=== PATIENT | female | born 1945 | race Caucasian/White ===

== ENCOUNTER → 2017-07-29 | Outpatient (CLI) | payer MEDICARE, OTHER ==
[~2017-07-29] MED LIST: CALPRATL TP; ESTR1; ESTR2 PO; FLUO20; GABA400; NAPR220; OXCA300; PRED20 PO; PREG50; Prozac20 MG; TOPI25; TRIA80TC TOP; [UNRECOGNIZED DRUG - REMARK]
[2017-07-29 11:33] LABS: BASOPHILS ABSOLUTE AUTO 0.06 K/mm3 (0.00-0.23); BASOPHILS PERCENT AUTO 1 % (0-2); EOSINOPHILS ABSOLUTE AUTO 0.32 K/mm3 (0.00-0.68); EOSINOPHILS PERCENT AUTO 3 % (0-6); Hematocrit 42.4 % (33.0-51.0); Hemoglobin 14.1 g/dL (11.5-16.0); IMMATURE GRAN ABSOLUTE AUTO 0.01 K/mm3 (0.00-0.10); IMMATURE GRAN PERCENT AUTO 0 % (0-1); LYMPHOCYTES ABSOLUTE AUTO 2.02 K/mm3 (0.84-5.20); LYMPHOCYTES PERCENT AUTO 21 % (21-46); MONOCYTES ABSOLUTE AUTO 0.79 K/mm3 (0.16-1.47); MONOCYTES PERCENT AUTO 8 % (4-13); Mean Corpuscular HGB 31.4 pg (26.0-34.0); Mean Corpuscular HGB Conc 33.3 g/dL (31.5-36.5); Mean Corpuscular Volume 94 fL (80-100); Mean Platelet Volume 12.2 fL (9.1-12.4); NEUTROPHILS ABSOLUTE AUTO 6.47 K/mm3 (1.96-9.15); NEUTROPHILS PERCENT AUTO 67 % (41-73); Platelet Count 166 K/mm3 (150-400); RDW Coefficient Variation 13.3 % (11.7-14.2); RDW Standard Deviation 46.2 fL (35.1-46.3); Red Blood Cell Count 4.49 M/mm3 (3.80-5.20); White Blood Cell Count 9.67 K/mm3 (4.00-11.30)
[2017-07-29 11:51] LABS: Alanine Aminotransfer (ALT/SGP 43 U/L (12-78); Albumin, Blood 3.4 g/dL (3.4-5.0); Alk Phos 82 U/L (40-126); Anion Gap 6 mmol/L (6-16); Aspartate Aminotrans (AST/SGOT 24 U/L (12-37); Bilirubin, Total 0.5 mg/dL (0.1-1.0); Blood Urea Nitrogen 19 mg/dL (8-24); CO2, Blood 29 mmol/L (21-32); Chloride, Blood 106 mmol/L (98-108); Creatinine, Blood 0.76 mg/dL (0.40-1.00); Globulin, Blood 3.4 g/dL (2.2-4.0); Glomerular Filtration Rate >60 (60-); Glucose, Blood 93 mg/dL (70-99); Potassium, Blood 4.2 mmol/L (3.5-5.5); Sodium, Blood 141 mmol/L (136-145); Thyroid Stimulating Hormone 1.846 uIU/mL (0.360-4.800); Total Protein, Blood 6.8 g/dL (6.4-8.2)
== END | disposition home or self-care (01) ==
LOC: LAB EV 11:19
PROVIDERS: Physician Assistant
DX: E55.9 Vitamin D deficiency, unspecified (principal); R53.83 Other fatigue
CPT/HCPCS: 80053; 82306; 84443; 85025

== ENCOUNTER 2018-07-14 18:49 | Emergency (ER) | payer MEDICARE, OTHER ==
[~2018-07-14] VITALS: Ht 165.1 cm; Wt 75.8 kg
== END 2018-07-14 20:58 | disposition home or self-care (01) ==
LOC: ER 18:49
DX: S01.311A Laceration without foreign body of right ear, initial encounter (principal); S01.80XA Unspecified open wound of other part of head, initial encounter; S80.11XA Contusion of right lower leg, initial encounter; S20.411A Abrasion of right back wall of thorax, initial encounter; Z23 Encounter for immunization; Z79.899 Other long term (current) drug therapy; W50.0XXA Accidental hit or strike by another person, initial encounter
CPT/HCPCS: 12011; 90471; 90714; 99283-25

== ENCOUNTER 2018-07-26 10:07 | Emergency (ER) | payer MEDICARE, OTHER, BC ==
[~2018-07-26] VITALS: Ht 165.1 cm; Wt 79.4 kg
[2018-07-26 10:50] LABS: BASOPHILS ABSOLUTE AUTO 0.04 K/mm3 (0.00-0.23); BASOPHILS PERCENT AUTO 1 % (0-2); EOSINOPHILS ABSOLUTE AUTO 0.29 K/mm3 (0.00-0.68); EOSINOPHILS PERCENT AUTO 4 % (0-6); Hematocrit 47.5 % (33.0-51.0); Hemoglobin 15.2 g/dL (11.5-16.0); IMMATURE GRAN ABSOLUTE AUTO 0.03 K/mm3 (0.00-0.10); IMMATURE GRAN PERCENT AUTO 0 % (0-1); LYMPHOCYTES ABSOLUTE AUTO 1.79 K/mm3 (0.84-5.20); LYMPHOCYTES PERCENT AUTO 24 % (21-46); MONOCYTES PERCENT AUTO 7 % (4-13); Mean Corpuscular Volume 94 fL (80-100); Mean Platelet Volume 10.5 fL (9.1-12.4); NEUTROPHILS ABSOLUTE AUTO 4.98 K/mm3 (1.96-9.15); NEUTROPHILS PERCENT AUTO 65 % (41-73); Platelet Count 205 K/mm3 (150-400); RDW Coefficient Variation 13.3 % (11.7-14.2); RDW Standard Deviation 46.1 fL (35.1-46.3); Red Blood Cell Count 5.06 M/mm3 (3.80-5.20); White Blood Cell Count 7.63 K/mm3 (4.00-11.30)
[2018-07-26] MEDS ORDERED: GABA300 PO (11:09)
[2018-07-26] MEDS ORDERED: CELE200 PO (11:09)
[2018-07-26 11:12] LABS: Alanine Aminotransfer (ALT/SGP 42 U/L (12-78); Albumin, Blood 3.8 g/dL (3.4-5.0); Alk Phos 70 U/L (50-136); Anion Gap 6 mmol/L (6-16); Aspartate Aminotrans (AST/SGOT 30 U/L (12-37); Bilirubin, Total 0.5 mg/dL (0.1-1.0); Blood Urea Nitrogen 24 mg/dL (8-24); Bun/Creatinine Ratio 29.6 (12.0-20.0); CO2, Blood 30 mmol/L (21-32); Calcium, Blood 9.3 mg/dL (8.5-10.1); Chloride, Blood 101 mmol/L (98-108); Creatinine, Blood 0.81 mg/dL (0.40-1.00); Globulin, Blood 3.7 g/dL (2.2-4.0); Glomerular Filtration Rate >60 (60-); Glucose, Blood 109 mg/dL (70-99); Potassium, Blood 3.8 mmol/L (3.5-5.5); Sodium, Blood 137 mmol/L (136-145); Total Protein, Blood 7.5 g/dL (6.4-8.2)
== END 2018-07-26 12:00 | disposition home or self-care (01) ==
LOC: ER 10:07
PROVIDERS: Emergency Medicine
DX: S80.11XA Contusion of right lower leg, initial encounter (principal); S80.12XA Contusion of left lower leg, initial encounter; R10.12 Left upper quadrant pain; S01.311D Laceration without foreign body of right ear, subsequent encounter; X58.XXXA Exposure to other specified factors, initial encounter
CPT/HCPCS: 36415; 73590; 80053; 83690; 85025; 93005; 93010; 96374; 99284-25; J2405

== ENCOUNTER → 2018-07-29 | Outpatient (CLI) | payer MEDICARE, BC ==
[~2018-07-29] MED LIST changes: +CELE200 PO; +GABA300 PO
== END | disposition home or self-care (01) ==
LOC: LAB EV 07:52 → LAB SHORT 07:52
DX: J02.9 Acute pharyngitis, unspecified (principal)
CPT/HCPCS: 87070

== ENCOUNTER 2018-10-10 17:18 | Inpatient (IN) | payer MEDICARE, BC ==
[~2018-10-10] VITALS: Ht 165.1 cm; Wt 77.1 kg
[~2018-10-10 17:18] MED LIST changes: -ESTR2 PO; +Estradiol0.5 MG PO; -Prozac20 MG; +Prozac20 MG PO
[2018-10-10] MEDS ORDERED: Mobic15 MG PO (17:34)
[2018-10-10] MEDS ORDERED: DULO60 PO (20:36)
[2018-10-10 20:41] LABS: BASOPHILS ABSOLUTE AUTO 0.03 K/mm3 (0.00-0.23); BASOPHILS PERCENT AUTO 0 % (0-2); EOSINOPHILS ABSOLUTE AUTO 0.28 K/mm3 (0.00-0.68); EOSINOPHILS PERCENT AUTO 3 % (0-6); Hematocrit 42.8 % (33.0-51.0); Hemoglobin 13.6 g/dL (11.5-16.0); IMMATURE GRAN ABSOLUTE AUTO 0.02 K/mm3 (0.00-0.10); IMMATURE GRAN PERCENT AUTO 0 % (0-1); LYMPHOCYTES PERCENT AUTO 23 % (21-46); MONOCYTES ABSOLUTE AUTO 0.55 K/mm3 (0.16-1.47); MONOCYTES PERCENT AUTO 6 % (4-13); Mean Corpuscular HGB 30.8 pg (26.0-34.0); Mean Corpuscular HGB Conc 31.8 g/dL (31.5-36.5); Mean Corpuscular Volume 97 fL (80-100); Mean Platelet Volume 11.1 fL (9.1-12.4); NEUTROPHILS ABSOLUTE AUTO 5.94 K/mm3 (1.96-9.15); NEUTROPHILS PERCENT AUTO 67 % (41-73); Platelet Count 180 K/mm3 (150-400); RDW Standard Deviation 46.5 fL (35.1-46.3); Red Blood Cell Count 4.42 M/mm3 (3.80-5.20); White Blood Cell Count 8.82 K/mm3 (4.00-11.30)
[2018-10-10 20:55] LABS: International Normalized Ratio 0.95; Prothrombin Time Results 10.1 Sec (9.7-11.5)
[2018-10-10 21:01] LABS: Alanine Aminotransfer (ALT/SGP 27 U/L (12-78); Albumin, Blood 3.6 g/dL (3.4-5.0); Albumin/Globulin Ratio 1.1 (0.8-1.8); Alk Phos 58 U/L (50-136); Anion Gap 4 mmol/L (6-16); Aspartate Aminotrans (AST/SGOT 22 U/L (12-37); Bilirubin, Total 0.3 mg/dL (0.1-1.0); Blood Urea Nitrogen 23 mg/dL (8-24); Bun/Creatinine Ratio 33.5 (12.0-20.0); CO2, Blood 30 mmol/L (21-32); Calcium, Blood 8.8 mg/dL (8.5-10.1); Chloride, Blood 105 mmol/L (98-108); Creatinine, Blood 0.69 mg/dL (0.40-1.00); Globulin, Blood 3.2 g/dL (2.2-4.0); Glomerular Filtration Rate >60 (60-); Glucose, Blood 83 mg/dL (70-99); Potassium, Blood 4.1 mmol/L (3.5-5.5); Sodium, Blood 139 mmol/L (136-145); Total Protein, Blood 6.8 g/dL (6.4-8.2)
--- NOTE | 2018-10-11 05:10 | NUR ---
VSS, AFEBRILE, A/O, C/O L ANKLE PAIN AND H/A, PT STEPPED OFF OF THE DECK AT HOME AND SPRAINED HER R ANKLE, FX THE L ANKLE. PREVIOUS SHURGERY ON L KNEE MANY YEARS AGO. 18G R AC, CONSULT TO [facility] FOR SURGERY HAS BEEN DONE, NPO SINCE ADMIT TO THE FLOOR, SLEPT LIGHTLY ALL NOC
[2018-10-11 05:12] LABS: Hematocrit 41.8 % (33.0-51.0); Hemoglobin 13.1 g/dL (11.5-16.0); Mean Corpuscular HGB 31.3 pg (26.0-34.0); Mean Corpuscular HGB Conc 31.3 g/dL (31.5-36.5); Mean Platelet Volume 11.1 fL (9.1-12.4); Platelet Count 160 K/mm3 (150-400); RDW Coefficient Variation 12.9 % (11.7-14.2); RDW Standard Deviation 47.5 fL (35.1-46.3); Red Blood Cell Count 4.19 M/mm3 (3.80-5.20); White Blood Cell Count 7.31 K/mm3 (4.00-11.30)
[2018-10-11 05:13] LABS: Mean Corpuscular Volume 100 fL (80-100)
[2018-10-11 05:30] LABS: Alanine Aminotransfer (ALT/SGP 22 U/L (12-78); Albumin, Blood 3.4 g/dL (3.4-5.0); Albumin/Globulin Ratio 1.2 (0.8-1.8); Alk Phos 52 U/L (50-136); Anion Gap 8 mmol/L (6-16); Aspartate Aminotrans (AST/SGOT 21 U/L (12-37); Bilirubin, Total 0.4 mg/dL (0.1-1.0); Blood Urea Nitrogen 23 mg/dL (8-24); Bun/Creatinine Ratio 32.9 (12.0-20.0); CO2, Blood 28 mmol/L (21-32); Calcium, Blood 8.6 mg/dL (8.5-10.1); Chloride, Blood 106 mmol/L (98-108); Globulin, Blood 2.8 g/dL (2.2-4.0); Glomerular Filtration Rate >60 (60-); Glucose, Blood 85 mg/dL (70-99); Potassium, Blood 3.9 mmol/L (3.5-5.5); Sodium, Blood 142 mmol/L (136-145); Total Protein, Blood 6.2 g/dL (6.4-8.2)
--- NOTE | 2018-10-11 07:09 | NUR ---
2 PILLOWS UNDER BOTH LEGS FOR ELEVATION AND TO DECREASE SWELLING/PAIN.
--- NOTE | 2018-10-11 08:25 | NUR ---
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 ONE PILLOW TAKEN OUT.
--- NOTE | 2018-10-11 10:17 | NUR ---
PATIENT C/O PAIN TO LEFT LEG. STS MEDS DID NOT HELP. LONNIE WRAP LOOSENED AROUND FOOT W/SOME RELIEF. 2 PILLOWS UNDER LEFT FOOT, FOOT REST ELEVATED, ICE PACK TO LEG.
--- NOTE | 2018-10-11 11:17 | NUR ---
Patient was lying in bed and alert when I entered patient's room. Patient recognized me and thanked me for coming to visit her. Patient said that she just received pain meds but is in terrible pain. I encoureged her to press the call button for her nurse. Her nurse came quickly and tried some other techniques to help manage pain. Patient's , Kenroy was bedside. We talked about the incident that led to her admission to the hospital, their spiritual journey and their family . I listned empathically, provided a calming presence and prayer. Patient responded well and showed signs of reduced stress.
[2018-10-11] MEDS ORDERED: DULO60 PO (12:17)
--- NOTE | 2018-10-11 14:00 | NUR ---
INTO SDS VIA BED. SPINT/LONNIE WRAP INTACT TO LEFT LOWER EXTREMITY.CIRCULATION CHECK GOOD/GOOD CAPILLARY REFILL. PT REPORTS PAIN TO LEFT LOWER EXTREMITY AT 4/10. HISTORY AND ALLERGIES REVIEWED. NPO STATUS CONFIRMED. PT RECEIVED A DOSE OF SUBCUTANEOUS LOVENOX AROUND MIDNIGHT-SEE EMAR. DR. VALERIO IS AWARE.
--- NOTE | 2018-10-11 14:32 | NUR ---
RIGHT ANKLE WITH LONNIE WRAP IN PLACE. PT REQUESTS THAT CHICHO HOSE AND PAS STOCKINGS BE PLACED ONCE SHE HAS BEEN "PUT TO SLEEP" DUE TO PAIN TO THE RIGHT ANKLE FROM A "SPRAIN." REQUEST GRANTED.
--- NOTE | 2018-10-11 18:01 | NUR ---
PT ADMITTED TO THE FLOOR DIRECTLY FROM PACU. PT WAS PREVIOUSLY IN ROOM 339. PT IS AWAKE, ALERT AND ORIENTED X4, VSS. LEFT LEG ELEVATED ON A PILLOW, CIRC WNL, PT IS ABLE TO WIGGLE HER TOES BUT STATES IT IS "NUMB". DENIES PAIN. DRY FLOW SHEET PLACED UNDER THE LEG, ICE PACK TO LEG. PT DENIES PAIN AT THIS TIME. ICE CHIPS GIVEN. PT ENCOURAGED TO START PO INTAKE SLOWLY. WCTM AT THIS TIME.
--- NOTE | 2018-10-12 06:55 | NUR ---
DR VALERIO TO ROOM. PLAN TO COME BACK AROUND LUNCH WITH CAM BOOT. PROVIDER WANTS PT AND OT CONSULTED AND AND EVAL PRIOR TO POSS DC TODAY.
--- NOTE | 2018-10-12 07:05 | NUR ---
REPORT FROM PAUL Goode RN. ASSUMED PT CARE.
--- NOTE | 2018-10-12 07:20 | NUR ---
PT AWAKE AND ALERT. SPOUSE AT BEDSIDE. ASSESSMENT CHARTED. PT ASKING FOR PAIN MEDICATION.
--- NOTE | 2018-10-12 07:33 | NUR ---
PT MEDICATED WITH 1 NORCO PO PER EMAR. HOT WATER AND TEA VARIETY PROVIDED TO PT AND COFFEE TO SPOUSE.
--- NOTE | 2018-10-12 08:35 | NUR ---
PT MEDICATED WITH SCHED MEDS PER EMAR. PT SPOUSE GONE AT THIS TIME. WILL RETURN LATER. CALL LIGHT IN REACH.
--- NOTE | 2018-10-12 08:49 | NUR ---
PT MEDICATED WITH SCHEDULED MELOXICAM. TRAY CLEARED. PT DENIES NAUSEA. PT ATE 100%.
--- NOTE | 2018-10-12 09:27 | NUR ---
PT MEDICATED WITH 1MG DILAUDID IV FOR CONT PAIN. SHADES CLOSED AND LIGHTS DIMMED FOR PT COMFORT.
--- NOTE | 2018-10-12 10:15 | NUR ---
VISITORS HOPE AND KALEE TO ROOM TO DROP SOMETHING OFF FOR PT. PT SLEEPING, VISITORS LEFT ITEM ON BEDSIDE TABLE. PT RESP EVEN AND NONLABORED. PT SLEEPING WITH EYE MASK ON.
--- NOTE | 2018-10-12 11:50 | NUR ---
DR VALERIO AT BEDSIDE APPLYING CAM BOOT TO RIGHT FOOT. PT [place]YEN[place] WELL. DISCUSSED PAIN MANAGEMENT WITH PROVIDER. SCRIPT CHANGED FROM NORCO TO OXY. LUNCH TRAY PROVIDED.
--- NOTE | 2018-10-12 14:20 | NUR ---
DR GAN TO ROOM.
--- NOTE | 2018-10-12 15:15 | NUR ---
PT AND OT WORKING WITH PT.
--- NOTE | 2018-10-12 16:08 | NUR ---
PT MEDICATED WITH 1 OXY PO FOR C/O PAIN 12/02.
[2018-10-12] MEDS ORDERED: ROXICODONE5 MG PO (16:12)
--- NOTE | 2018-10-12 17:30 | NUR ---
PT EATING DINNER. FRIEND AT BEDSIDE. AWAITING SPOUSE TO RETURN FOR TRANSPORT HOME.
--- NOTE | 2018-10-12 18:07 | NUR ---
PT MEDICATED WITH 1 OXY PO FOR PAIN 10/02. AWAITING FOR DC.
--- NOTE | 2018-10-12 18:46 | NUR ---
PT ASSISTED INTO WC AND ESCORTED TO VEHICLE.
--- NOTE | 2018-10-13 12:43 | NUR ---
10/13/18 1243 Monet Griffith CHART VERIFICATIONS, EDITS.
== END 2018-10-12 18:46 | disposition home or self-care (01) | DRG 494 ==
LOC: ER 17:18 → ERHOLD 20:13 → SURS 20:13 → MEDS 20:13 → SURS 22:57 → MEDS 23:05 → SURS 10-11 13:59
PROVIDERS: Podiatrist Foot & Ankle Surgery; ADMIT Internal Medicine
PROC: 2W3TX1Z Immobilization of Left Foot using Splint (ICD-10-PCS; 2018-10-10)
PROC: 0QSH04Z Reposition Left Tibia with Internal Fixation Device, Open Approach (ICD-10-PCS; 2018-10-11)
PROC: 0QSK04Z Reposition Left Fibula with Internal Fixation Device, Open Approach (ICD-10-PCS; principal; 2018-10-11 15:00)
DX: S82.842A Displaced bimalleolar fracture of left lower leg, initial encounter for closed fracture (principal); R51 Headache; W19.XXXA Unspecified fall, initial encounter; Y92.009 Unspecified place in unspecified non-institutional (private) residence as the place of occurrence of the external cause; F32.9 Major depressive disorder, single episode, unspecified; Z78.0 Asymptomatic menopausal state; G50.0 Trigeminal neuralgia; Z79.1 Long term (current) use of non-steroidal anti-inflammatories (NSAID); Z79.899 Other long term (current) drug therapy
CPT/HCPCS: 29515; 36415; 73610; 80053; 85025; 85027; 85610; 96374-59; 96375-59; 97162; 97166; 97530; 97535; 99285-25; A9270-GY; C1713; C1769; J0690; J1100; J1170; J1650; J2370; J2405; J3010; J7030; J7120

== ENCOUNTER 2023-09-15 18:35 | Emergency (ER) | payer OTHER ==
[~2023-09-15] VITALS: Ht 162.6 cm; Wt 81.7 kg
[~2023-09-15 18:35] MED LIST changes: +DULO60 PO; +Mobic15 MG PO; +ROXICODONE5 MG PO
[2023-09-15] MEDS ORDERED: NS 1,000 ML IV ONE (18:40)
[2023-09-15 19:27] LABS: BASOPHILS ABSOLUTE AUTO 0.04 K/mm3 (0.00-0.23); BASOPHILS PERCENT AUTO 0 % (0-2); EOSINOPHILS PERCENT AUTO 4 % (0-6); Hematocrit 42.8 % (33.0-51.0); Hemoglobin 14.1 g/dL (11.5-16.0); IMMATURE GRAN ABSOLUTE AUTO 0.02 K/mm3 (0.00-0.10); IMMATURE GRAN PERCENT AUTO 0 % (0-1); LYMPHOCYTES ABSOLUTE AUTO 2.76 K/mm3 (0.84-5.20); LYMPHOCYTES PERCENT AUTO 28 % (21-46); MONOCYTES ABSOLUTE AUTO 0.59 K/mm3 (0.16-1.47); MONOCYTES PERCENT AUTO 6 % (4-13); Mean Corpuscular HGB 30.7 pg (26.0-34.0); Mean Corpuscular HGB Conc 32.9 g/dL (31.5-36.5); Mean Corpuscular Volume 93 fL (80-100); NEUTROPHILS ABSOLUTE AUTO 6.22 K/mm3 (1.96-9.15); NEUTROPHILS PERCENT AUTO 62 % (41-73); Platelet Count 197 K/mm3 (150-400); RDW Coefficient Variation 12.9 % (11.7-14.2); RDW Standard Deviation 43.8 fL (35.1-46.3); White Blood Cell Count 10.03 K/mm3 (4.00-11.30)
[2023-09-15 19:50] LABS: Albumin, Blood 3.5 g/dL (3.4-5.0); Bilirubin, Total 0.4 mg/dL (0.1-1.0); Bun/Creatinine Ratio 37.8 (12.0-20.0); Creatinine, Blood 0.87 mg/dL (0.40-1.00); Globulin, Blood 3.6 g/dL (2.2-4.0); Potassium, Blood 4.5 mmol/L (3.5-5.5); Total Protein, Blood 7.1 g/dL (6.4-8.2)
[2023-09-15 21:30] VITALS: BP 116/70
== END 2023-09-15 21:50 | disposition home or self-care (01) ==
LOC: ER 18:35
PROVIDERS: Emergency Medicine
DX: G45.9 Transient cerebral ischemic attack, unspecified (principal); Z79.899 Other long term (current) drug therapy
CPT/HCPCS: 70450; 80053; 85025; 93005; 93010; 96360; 99285-25; J7030

== ENCOUNTER 2023-09-17 18:54 | Inpatient (IN) | payer OTHER ==
[~2023-09-17] VITALS: Ht 165.1 cm; Wt 88.1 kg
[2023-09-17] MEDS ORDERED: FentaNYL Citrate 50 MCG/ML 2 ML Injection IV ONE (19:05)
[2023-09-17] MEDS ORDERED: ELIQUIS5 M3 PO ×2 (19:07)
[2023-09-17] MEDS ORDERED: IPRATROPIUM BRO15 ML NS ×2 (19:07)
[2023-09-17] MEDS ORDERED: PRAV20 PO ×2 (19:08)
[2023-09-17] MEDS ORDERED: METOPROLOL TART25 MG PO ×2 (19:08)
[2023-09-17] MEDS ORDERED: BENZONATATE100 MG PO ×2 (19:08)
[2023-09-17 19:11] LABS: BASOPHILS ABSOLUTE AUTO 0.04 K/mm3 (0.00-0.23); BASOPHILS PERCENT AUTO 0 % (0-2); EOSINOPHILS ABSOLUTE AUTO 0.39 K/mm3 (0.00-0.68); EOSINOPHILS PERCENT AUTO 4 % (0-6); Hematocrit 42.1 % (33.0-51.0); Hemoglobin 13.8 g/dL (11.5-16.0); IMMATURE GRAN ABSOLUTE AUTO 0.04 K/mm3 (0.00-0.10); IMMATURE GRAN PERCENT AUTO 0 % (0-1); LYMPHOCYTES ABSOLUTE AUTO 4.06 K/mm3 (0.84-5.20); LYMPHOCYTES PERCENT AUTO 42 % (21-46); MONOCYTES ABSOLUTE AUTO 0.72 K/mm3 (0.16-1.47); MONOCYTES PERCENT AUTO 8 % (4-13); Mean Corpuscular HGB 30.8 pg (26.0-34.0); Mean Corpuscular HGB Conc 32.8 g/dL (31.5-36.5); Mean Corpuscular Volume 94 fL (80-100); Mean Platelet Volume 10.7 fL (9.1-12.4); NEUTROPHILS ABSOLUTE AUTO 4.33 K/mm3 (1.96-9.15); NEUTROPHILS PERCENT AUTO 45 % (41-73); Platelet Count 188 K/mm3 (150-400); RDW Coefficient Variation 12.9 % (11.7-14.2); RDW Standard Deviation 44.1 fL (35.1-46.3); Red Blood Cell Count 4.48 M/mm3 (3.80-5.20); White Blood Cell Count 9.58 K/mm3 (4.00-11.30)
[2023-09-17 19:34] LABS: Ethanol (Alcohol), Blood, Med <3 mg/dL; Magnesium, Blood 2.1 mg/dL (1.6-2.4)
[2023-09-17 19:36] LABS: Alanine Aminotransfer (ALT/SGP 42 U/L (12-78); Albumin, Blood 3.5 g/dL (3.4-5.0); Alk Phos 76 U/L (50-136); Anion Gap Unable to Calculate mmol/L (6-16); Aspartate Aminotrans (AST/SGOT 32 U/L (12-37); Bilirubin, Total 0.4 mg/dL (0.1-1.0); Blood Urea Nitrogen 22 mg/dL (8-24); Bun/Creatinine Ratio 25.6 (12.0-20.0); CO2, Blood 31 mmol/L (21-32); Calcium, Blood 9.2 mg/dL (8.5-10.1); Chloride, Blood 110 mmol/L (98-108); Creatinine, Blood 0.86 mg/dL (0.40-1.00); Globulin, Blood 3.6 g/dL (2.2-4.0); Glomerular Filtration Rate 70 (60-); Glucose, Blood 96 mg/dL (70-99); Potassium, Blood 4.1 mmol/L (3.5-5.5); Sodium, Blood 140 mmol/L (136-145); Total Protein, Blood 7.1 g/dL (6.4-8.2)
[2023-09-17 20:31] LABS: Influenza A, PCR NEGATIVE (NEGATIVE); Influenza B, PCR NEGATIVE (NEGATIVE); Resp Syncytial Virus, PCR NEGATIVE (NEGATIVE); SARS-Cov-2 (COVID-19) PCR, MMC NEGATIVE (NEGATIVE)
[2023-09-17 20:33] LABS: U Amphetamine Screen Not Detected; U Barbituate Screen Not Detected; U Benzodiazapine Screen Not Detected; U Buprenorphine Screen Not Detected; U Cannabinoids Screen Not Detected; U Cocaine Screen Not Detected; U Methadone Screen Not Detected; U Methamphetamine Screen Not Detected; U Opiates Screen Not Detected; U Oxycodone Screen Not Detected; U Phencyclidine Screen Not Detected
[2023-09-17] MEDS ORDERED: Dexamethasone Sod Phos 10 MG/ML 1ML VIAL PO ONE (23:40)
[2023-09-17] MEDS ORDERED: Aspirin 325 MG Tab PO ONE (23:40)
[2023-09-18] VITALS (14 sets, daily range): BP systolic 111–142; BP diastolic 69–93
[2023-09-18] MEDS ORDERED: Ondansetron HCl 2 MG / ML 2ML Vial IV PRN (00:30)
[2023-09-18] MEDS ORDERED: Acetaminophen 325 MG TABLET PO PRN (00:30)
[2023-09-18] MEDS ORDERED: Nitroglycerin 0.4 MG SUBL SL PRN (00:50)
[2023-09-18 01:14] LABS: Anti-Xa UFH, PHA Monitoring 0.46 IU/mL; International Normalized Ratio 0.98; Prothrombin Time Results 10.3 Sec (9.7-11.5)
[2023-09-18] MEDS ORDERED: Heparin Sodium,Porcine/0.5 NS 500 ML IV SCH ×2 (01:25→13:00)
[2023-09-18] MEDS ORDERED: Gabapentin 300 MG Cap PO SCH ×2 (02:25→09:00)
[2023-09-18 04:29] LABS: BASOPHILS ABSOLUTE AUTO 0.04 K/mm3 (0.00-0.23); BASOPHILS PERCENT AUTO 1 % (0-2); EOSINOPHILS ABSOLUTE AUTO 0.42 K/mm3 (0.00-0.68); EOSINOPHILS PERCENT AUTO 5 % (0-6); Hematocrit 39.6 % (33.0-51.0); IMMATURE GRAN ABSOLUTE AUTO 0.02 K/mm3 (0.00-0.10); IMMATURE GRAN PERCENT AUTO 0 % (0-1); LYMPHOCYTES ABSOLUTE AUTO 2.75 K/mm3 (0.84-5.20); LYMPHOCYTES PERCENT AUTO 32 % (21-46); MONOCYTES ABSOLUTE AUTO 0.65 K/mm3 (0.16-1.47); MONOCYTES PERCENT AUTO 8 % (4-13); Mean Corpuscular HGB 30.2 pg (26.0-34.0); Mean Corpuscular HGB Conc 32.8 g/dL (31.5-36.5); Mean Corpuscular Volume 92 fL (80-100); Mean Platelet Volume 10.8 fL (9.1-12.4); NEUTROPHILS ABSOLUTE AUTO 4.71 K/mm3 (1.96-9.15); NEUTROPHILS PERCENT AUTO 55 % (41-73); Platelet Count 164 K/mm3 (150-400); RDW Standard Deviation 43.9 fL (35.1-46.3); White Blood Cell Count 8.59 K/mm3 (4.00-11.30)
[2023-09-18 04:51] LABS: Alanine Aminotransfer (ALT/SGP 34 U/L (12-78); Albumin, Blood 3.3 g/dL (3.4-5.0); Albumin/Globulin Ratio 1.1 (0.8-1.8); Alk Phos 69 U/L (50-136); Anion Gap 2 mmol/L (6-16); Aspartate Aminotrans (AST/SGOT 32 U/L (12-37); Bilirubin, Total 0.4 mg/dL (0.1-1.0); Blood Urea Nitrogen 22 mg/dL (8-24); Bun/Creatinine Ratio 26.2 (12.0-20.0); CHOL/HDL RATIO 4.2; CO2, Blood 28 mmol/L (21-32); Calcium, Blood 9.1 mg/dL (8.5-10.1); Chloride, Blood 109 mmol/L (98-108); Cholesterol 192 mg/dL (50-200); Creatinine, Blood 0.84 mg/dL (0.40-1.00); Glomerular Filtration Rate 72 (60-); Glucose, Blood 89 mg/dL (70-99); HDL Cholesterol 46 mg/dL (>39); LDL/HDL RATIO 2.7; Low Density Lipoprotein Chol 124 mg/dL (0-110); Potassium, Blood 4.1 mmol/L (3.5-5.5); Sodium, Blood 139 mmol/L (136-145); Total Protein, Blood 6.3 g/dL (6.4-8.2); Triglycerides 109 mg/dL (30-160); Very Low Density Lipoprot Chol 21 mg/dL (6-32)
--- NOTE | 2023-09-18 05:59 | NUR ---
SHIFT SUMMARY ASSUMED CARE OF PT AT 0130. PT IS A/OX4. PT 1P SBA FOR CORD MANAGEMENT. HEART SOUNDS REGULAR. LUNG SOUNDS CLEAR. TELE SHOWS SR @ 60BPM. PT C/O NUMBNESS IN L HAND. PT GIVEN TYENOL AND HAD NO COMPLAINTS THE REST OF THE MORNING. PT NPO SINCE ARRIVAL EXCEPT FOR NIGHT TIME MEDICATIONS.
[2023-09-18] MEDS ORDERED: Clopidogrel Bisulfate 300 MG Cap PO STA (07:55)
[2023-09-18] MEDS ORDERED: Metoprolol Succinate 25 MG TABCR PO SCH (08:00)
[2023-09-18] MEDS ORDERED: Metoprolol Tartrate 25 MG Tab PO SCH (09:00)
[2023-09-18] MEDS ORDERED: Aspirin 81 MG Chew PO SCH (09:00)
[2023-09-18] MEDS ORDERED: Atorvastatin 40 MG Tab PO SCH ×2 (09:00→21:00)
[2023-09-18] MEDS ORDERED: DULoxetine HCL 60 MG Capsule DR PO SCH (09:00)
[2023-09-18] MEDS ORDERED: NS 2,000 ML IV ONE (09:31)
[2023-09-18] MEDS ORDERED: Heparin Sodium 1000 Units/ML 10ML MDV ONE ×2 (09:31→09:36)
[2023-09-18] MEDS ORDERED: NS 250 ML IV ONE (09:31)
[2023-09-18] MEDS ORDERED: NiCARdipine HCL 1,000 MCG/5 ML SYR ONE (09:32)
[2023-09-18] MEDS ORDERED: FentaNYL Citrate 50 MCG/ML 2 ML Injection ONE (09:35)
[2023-09-18] MEDS ORDERED: Midazolam HCl 1MG / ML 2ML Vial ONE (09:35)
[2023-09-18] MEDS ORDERED: Clopidogrel Bisulfate 300 MG Cap ONE (10:03)
--- NOTE | 2023-09-18 11:20 | NUR ---
CARE NOTE/POST LOCK SETTER NOTE PT ARRIVED TO PCU FROM LOCK SETTER AT APPROX. 1030. SHE HAS A R RADIAL ACCESS SITE W/ TR BAND IN PLACE. THERE IS NO APPARENT BLEEDING/HEMATOMA. VSS. SHE IS ALERT AND ORIENTED X 4. HER IS AT BEDSIDE AND SHE HAS BEEN INSTRUCTED/EDUCATED REGARDING POST ANGIO RECOVERY/MOBILITY LIMITATIONS. CALL LIGHT IS W/IN REACH. SNACK AND WATER PROVIDED BY LAZ HANSON PER EMAR ORDERS.
--- NOTE | 2023-09-18 17:35 | NUR ---
SHIFT SUMMARY PT IS ALERT AND ORIENTED X 4. VSS. SHE HAS DENIED FEELINGS OF CHEST PAIN/PRESSURE WELL FEELINGS OF SOB. SHE DID REPORT FEELINGS OF DIZZINESS THAT HAS OCCURRED X 1 WEEK. SHE IS S/P ANGIOGRAM W/ R RADIAL ACCESS SITE. TR BAND HAS BEEN REMOVED AND HEPARIN WILL RESUME AT [address] VIDAL ORDERS. DURING TR BAND RECOVERY PROCESS, THERE WAS A MINIMAL AMOUNT OF BLEEDING THUS LEADING TO A LONGER TR BAND RECOVERY/REMOVAL TIME. TRANSPARENT DRESSING IS NOW IN PLACE W/OUT SIGNS OF APPARENT BLEEDING HOWEVER THERE IS A HEMATOMOA LOCATED ABOVE RADIAL SITE. PRESSURE WAS APPLIED TO HEMATOMA SITE UNTIL SITE WAS SOFTER UPON PALPATION. CROP DUSTER HELPER BOSTON TENORIO ALSO MADE AWARE. SHE HAS AMBULATED TO BR AND DENIED FEELINGS OF CHEST PRESSURE UPON AMBULATING. HER IS AT BEDSIDE. PT WAS EDUCATED REGARDING POST ANGIO ACCESS SITE CARE/LIMITATIONS ON MOBILITY. ARM BOARD ALSO IN PLACE. CALL LIGHT IS W/IN REACH.
[2023-09-18] MEDS ORDERED: AmLODIPine Besylate 5 MG Tab PO SCH (21:00)
[2023-09-19] MEDS ORDERED: Dose Adjust by Pharmacy XX STA (00:53)
[2023-09-19 05:00] VITALS: BP 126/79
--- NOTE | 2023-09-19 05:51 | NUR ---
SHIFT SUMMARY PATIENT ALERT AND ORIENTED x4, ABLE TO MAKE NEEDS KNOWN TO STAFF. EAGLE, Hx ACOUSTIC NEUROMA, HAS HEARING AIDS AT BEDSIDE. BP STABLE, TELE READING SR DURING THE NIGHT, DENIES CHEST PAIN. ANGIO DONE YESTERDAY, RIGHT RADIAL SITE RECOVERED, NOTED BRUISING AROUND AREA BUT PATIENT DENIES ANY PAIN AT SITE, ARM BOARD IN PLACE. PATIENT AMBULATING INTO BATHROOM WITH MINIMAL ASSITANCE, ADEQUATE OUTPUT. HEPARIN GTT CONTINUES TO INFUSE PER EMAR. NO OTHER CHANGES DURING THE NIGHT, WILL REPORT TO DAY SHIFT RN.
[2023-09-19] MEDS ORDERED: Pantoprazole Sodium 20 MG Tab PO SCH (06:00)
[2023-09-19 06:17] LABS: BASOPHILS ABSOLUTE AUTO 0.04 K/mm3 (0.00-0.23); BASOPHILS PERCENT AUTO 1 % (0-2); EOSINOPHILS ABSOLUTE AUTO 0.39 K/mm3 (0.00-0.68); EOSINOPHILS PERCENT AUTO 6 % (0-6); Hematocrit 41.3 % (33.0-51.0); Hemoglobin 13.7 g/dL (11.5-16.0); IMMATURE GRAN ABSOLUTE AUTO 0.01 K/mm3 (0.00-0.10); IMMATURE GRAN PERCENT AUTO 0 % (0-1); LYMPHOCYTES PERCENT AUTO 35 % (21-46); MONOCYTES ABSOLUTE AUTO 0.58 K/mm3 (0.16-1.47); MONOCYTES PERCENT AUTO 9 % (4-13); Mean Corpuscular HGB 30.4 pg (26.0-34.0); Mean Corpuscular HGB Conc 33.2 g/dL (31.5-36.5); Mean Corpuscular Volume 92 fL (80-100); Mean Platelet Volume 10.3 fL (9.1-12.4); NEUTROPHILS ABSOLUTE AUTO 3.43 K/mm3 (1.96-9.15); NEUTROPHILS PERCENT AUTO 50 % (41-73); Platelet Count 165 K/mm3 (150-400); RDW Coefficient Variation 13.1 % (11.7-14.2); White Blood Cell Count 6.85 K/mm3 (4.00-11.30)
[2023-09-19 06:36] LABS: Bun/Creatinine Ratio 27.5 (12.0-20.0); Calcium, Blood 9.1 mg/dL (8.5-10.1); Creatinine, Blood 0.98 mg/dL (0.40-1.00); Potassium, Blood 4.4 mmol/L (3.5-5.5)
[2023-09-19] MEDS ORDERED: Clarify Drug Order XX ONE (06:40)
[2023-09-19 07:35] VITALS: BP 113/87
[2023-09-19] MEDS ORDERED: Clopidogrel Bisulfate 75 MG Tab PO SCH ×2 (08:00)
--- NOTE | 2023-09-19 10:19 | NUR ---
AM NOTES; PT POST ANGIO 09/18/23, RIGHT RADIAL SITE, OPSITE DRESSING CDI, BRUISING AROUND THE SITE WITH NO PAIN/TENDERNESS. PT DENEIS CHEST PAIN/PRESSURE/SOB. PT HAS BEEN AMBULATING INDEPENDENTLY IN THE ROOM. A&OX4, ABLE TO MAKE NEEDS KNOWN, [place] HEARING AID IN PLACE. DR VIDAL SAW PT THIS MORNING HEPARIN GTT DC'D, RECOMMENDED TO HAVE PT AMBULATED AROUND THE UNIT, TO RESUME HOME DOSE OF ELIQUIS IF PT DC'D HOME. PT WAS ABLE TO AMBULATE WITH NO ISSUES, VITALS HRR SR 60-70'S, SBP 113, SATS ABOVE 95% ON RA, AFEBRILE. NO OTHER ISSUES REPORTED WILL CONTINUE TO MONITOR
[2023-09-19] MEDS ORDERED: CLOP75 PO ×2 (11:27)
[2023-09-19] MEDS ORDERED: Amlodipine Bes2.5 MG PO ×2 (11:27)
[2023-09-19] MEDS ORDERED: PANT40 PO ×2 (11:27)
[2023-09-19] MEDS ORDERED: ASPI81CH PO ×2 (11:27)
[2023-09-19] MEDS ORDERED: METOPROLOL SUCC25 MG PO ×2 (12:19)
[2023-09-19] MEDS ORDERED: METO25ER PO ×2 (12:24)
--- NOTE | 2023-09-19 12:35 | NUR ---
PT DISCHARGE TO HOME WITH DISCHARGE ORDERS, PRESCRIPTION SENT TO [facility]. PT HAS BEEN AMBULATING IN THE ROOM INDEPENDENTLY WITH NO ISSUES. ALL NEW MEDICATIONS AND DISCHARGE INSTRUCTIONS DISCLOSED WITH BOTH AND AT THE BEDSIDE, BOTH VERBALIZED UNDERSTANDING. ALL BELONGINGS SENT WITH THE PT, ACCOMPANIED BY PCT VIA WHEELCHAIR FOR DISCHARGE.
[2023-09-19] MEDS ORDERED: Apixaban 5 MG Tab PO SCH (21:00)
[2023-09-20] MEDS ORDERED: Pantoprazole Sodium 40 MG Tab PO SCH (06:00)
== END 2023-09-19 12:45 | disposition home or self-care (01) | DRG 282 ==
LOC: ER 18:54 → PCU 18:55
PROVIDERS: Emergency Medicine; Family Medicine; Internal Medicine; ADMIT Student in an Organized Health Care Education/Training Program
PROC: B2111ZZ Fluoroscopy of Multiple Coronary Arteries using Low Osmolar Contrast (ICD-10-PCS; principal; 2023-09-18)
PROC: 4A023N7 Measurement of Cardiac Sampling and Pressure, Left Heart, Percutaneous Approach (ICD-10-PCS; 2023-09-18)
DX: I21.4 Non-ST elevation (NSTEMI) myocardial infarction (principal); I48.0 Paroxysmal atrial fibrillation; E78.5 Hyperlipidemia, unspecified; D33.3 Benign neoplasm of cranial nerves; I27.20 Pulmonary hypertension, unspecified; I12.9 Hypertensive chronic kidney disease with stage 1 through stage 4 chronic kidney disease, or unspecified chronic kidney disease; N18.30 Chronic kidney disease, stage 3 unspecified; I73.9 Peripheral vascular disease, unspecified; F32.A Depression, unspecified; G89.29 Other chronic pain; Z79.82 Long term (current) use of aspirin; Z79.899 Other long term (current) drug therapy; Z90.710 Acquired absence of both cervix and uterus; Z90.89 Acquired absence of other organs; Z98.890 Other specified postprocedural states; Z79.01 Long term (current) use of anticoagulants; Z11.52 Encounter for screening for COVID-19
CPT/HCPCS: 0241U; 36415; 70450; 71045; 76937; 80048; 80053; 80061; 83690; 83735; 83880; 84484; 85025; 85347; 85520; 85610; 85730; 93306; 93454; 96365; 96366; 96374; 96375; 99152; 99153; 99285-25; A9270; C1769; C1887; C9113; G0378; J1644; J2250; J3010; J7030; J7050; Q9967

== ENCOUNTER 2023-10-30 13:29 | Emergency (ER) | payer OTHER ==
[~2023-10-30] VITALS: Ht 165.1 cm; Wt 81.7 kg
[~2023-10-30 13:29] MED LIST changes: +ASPI81CH PO; +Amlodipine Bes2.5 MG PO; +BENZONATATE100 MG PO; +CLOP75 PO; +ELIQUIS5 M3 PO; +IPRATROPIUM BRO15 ML NS; +METO25ER PO; +METOPROLOL SUCC25 MG PO; +METOPROLOL TART25 MG PO; +PANT40 PO; +PRAV20 PO
[2023-10-30 14:20] LABS: BASOPHILS ABSOLUTE AUTO 0.05 K/mm3 (0.00-0.23); BASOPHILS PERCENT AUTO 1 % (0-2); EOSINOPHILS ABSOLUTE AUTO 0.24 K/mm3 (0.00-0.68); EOSINOPHILS PERCENT AUTO 3 % (0-6); Hematocrit 43.4 % (33.0-51.0); Hemoglobin 14.4 g/dL (11.5-16.0); IMMATURE GRAN ABSOLUTE AUTO 0.03 K/mm3 (0.00-0.10); IMMATURE GRAN PERCENT AUTO 0 % (0-1); LYMPHOCYTES ABSOLUTE AUTO 2.29 K/mm3 (0.84-5.20); LYMPHOCYTES PERCENT AUTO 28 % (21-46); MONOCYTES ABSOLUTE AUTO 0.56 K/mm3 (0.16-1.47); MONOCYTES PERCENT AUTO 7 % (4-13); Mean Corpuscular HGB 30.1 pg (26.0-34.0); Mean Corpuscular HGB Conc 33.2 g/dL (31.5-36.5); Mean Corpuscular Volume 91 fL (80-100); Mean Platelet Volume 10.2 fL (9.1-12.4); NEUTROPHILS ABSOLUTE AUTO 5.06 K/mm3 (1.96-9.15); NEUTROPHILS PERCENT AUTO 62 % (41-73); Platelet Count 224 K/mm3 (150-400); RDW Coefficient Variation 13.1 % (11.7-14.2); RDW Standard Deviation 43.7 fL (35.1-46.3); Red Blood Cell Count 4.79 M/mm3 (3.80-5.20); White Blood Cell Count 8.23 K/mm3 (4.00-11.30)
[2023-10-30 14:39] LABS: Albumin, Blood 3.6 g/dL (3.4-5.0); Bilirubin, Total 0.4 mg/dL (0.1-1.0); Bun/Creatinine Ratio 21.7 (12.0-20.0); Calcium, Blood 9.5 mg/dL (8.5-10.1); Creatinine, Blood 0.87 mg/dL (0.40-1.00); Globulin, Blood 3.7 g/dL (2.2-4.0); Magnesium, Blood 2.1 mg/dL (1.6-2.4); Potassium, Blood 4.1 mmol/L (3.5-5.5); Total Protein, Blood 7.3 g/dL (6.4-8.2)
[2023-10-30 15:00] VITALS: BP 115/84
[2023-10-30] MEDS ORDERED: MELO7.5 PO (15:13)
[2023-10-30] MEDS ORDERED: MELO7.5 (15:13)
[2023-10-30] MEDS ORDERED: Meclizine HCl 25 MG Tab PO ONE (15:35)
[2023-10-30] MEDS ORDERED: MOTION RELIEF25 M1 PO (15:35)
== END 2023-10-30 15:49 | disposition home or self-care (01) ==
LOC: ER 13:29
PROVIDERS: Physician Assistant
DX: R42 Dizziness and giddiness (principal); I48.91 Unspecified atrial fibrillation; Z79.899 Other long term (current) drug therapy
CPT/HCPCS: 70450; 80053; 83735; 85025; 99284-25; A9270